=== PATIENT | female | born 1945 | race Caucasian/White ===

== ENCOUNTER 2018-10-15 19:46 | Emergency (ER) | payer MEDICARE, OTHER ==
[2018-10-15 20:20] LABS: MEAN CORPUSCULAR HEMOGLOBIN 28.7 pg (28.0-34.0)
[2018-10-15 20:21] LABS: EOSINOPHILS % 1 % (0-7); MONOCYTES % 3 % (0-11); SEGMENTED NEUTROPHILS % 82 % (39-79)
[2018-10-15 20:23] LABS: eGFR (Non-African) > 60
[2018-10-15] MEDS ORDERED: 0.9 % SODIUM CHLORIDE 1,000 ML IV ONE (20:26)
--- NOTE | 2018-10-15 20:35 | ED Physician Documentation ---
Fall - HISTORIAN Historian: patient - HPI Chief Complaint: Fall Onset: just prior to arrival Where: home Context: tripped r: moderate Associated Symptoms:: no loss of consciousness Location of Pain/Injury: head, neck, upper back Injury to Right Extremity: shoulder Injury to Left Extremity: none Further Comments: yes (73 year old female patient brought in after a fall down 10 steps at home. Patient reports tripping going down the stairs. Denies LOC. Presents with complaint of neck, right shoulder and back pain.) - ROS CONST: no problems NEURO: denies: dizziness, anxiety, depression MS/SKIN/LYMPH: denies: weakness, numbness, neck pain, back pain, ankle swelling, leg swelling, rash, other EYES/ENT: none CVS/RESP: none GI/: denies: problems urinating, nausea, vomiting, other - PAST HX Past History: other (chronic pain left leg; rotator cuff tear right shoulder; HTN, OA, hypothyroidism, ) Allergies/Adverse Reactions: Allergies Allergy/AdvReac Type Severity Reaction Status Date / Time No Known Allergies Allergy Verified 10/15/18 20:53 - SOCIAL HX Smoking History: non-smoker - FAMILY HX Family History: denies: none - REVIEWED ASSESSMENTS Nursing Assessment Reviewed: Yes Vitals Reviewed: Yes Progress - Progress Progress: 2049 CT's completed; c-spine clear, c-collar removed. No complaint of pain with flexion, extension or rotation 2109 Patient now complaining of right shoulder and right ankle pain. Will not move right shoulder. Will obtain xrays. [address], cap refill prompt. Reviewed discharge instructions with patient and family; explained no weight bearing. Patient does not think she can use crutches. She does have a wheelchair and walker at home. ED Results Lab/Radiology - Lab Results Lab Results: Lab Results 10/15/18 10/15/18 19:52 19:52 WBC 23.10 K/ul H K/ul (4.00-12.00) RBC 5.18 M/ul M/ul (3.90-5.20) Hgb 14.9 g/dL g/dL (11.5-16.0) Hct 44.3 % % (34.5-46.5) MCV 85.0 fl fl (80.0-100.0) MCH 28.7 pg pg (28.0-34.0) MCHC 33.6 g/dL g/dL (30.0-36.0) RDW 14.4 % H % (11.3-14.3) Plt Count 181 K/mm3 K/mm3 (130-400) Seg Neutrophils % 82 % H % (39-79) Band Neutrophils % 7 % % (0-12) Lymphocytes % 7 % L % (16-50) Monocytes % 3 % % (0-11) Eosinophils % 1 % % (0-7) Plt Morphology Comment Normal (NORMAL) RBC Morph Comment Normal (NORMAL) Sodium 135 mmol/L L mmol/L (137-145) Potassium 4.6 mmol/L mmol/L (3.5-5.1) Chloride 103 mmol/L mmol/L (98-107) Carbon Dioxide 25 mmol/L mmol/L (22-30) BUN 22 mg/dL H mg/dL (7-17) Creatinine 0.72 mg/dL mg/dL (0.52-1.04) Est GFR ( Amer) > 60 (60 - ) Est GFR (Non-Af Amer) > 60 (60 - ) Glucose 131 mg/dL H mg/dL (74-106) Calcium 8.8 mg/dL mg/dL (8.4-10.2) Total Bilirubin 0.6 mg/dL mg/dL (0.2-1.3) AST 63 U/L H U/L (15-46) ALT 40 U/L H U/L (0-35) Alkaline Phosphatase 68 U/L U/L (38-126) Total Protein 7.2 g/dL g/dL (6.3-8.2) Albumin 4.0 g/dL g/dL (3.5-5.0) - Radiology Radiology Impressions: CT CERVICAL SPINE HISTORY: Fall down stairs, headache and neck pain. TECHNIQUE: Axial, sagittal and coronal scans through the cervical spine were obtained without contrast. FINDINGS: Degenerative disc disease is seen at many levels in the cervical spine, most severe at C6/C7 with disc space narrowing and osteophyte formation. Multilevel facet degenerative changes are seen as well. No fractures are identified. No disk protrusion, spinal stenosis, neural foraminal encroachment or nerve root impingement is identified. Soft tissue structures in the neck included on the study are within normal limits. IMPRESSION: Multilevel degenerative disc and facet disease, but no evidence of fracture or other acute abnormality. Electronically signed on October 15, 2018 8:43:00 PM CDT by: Nino Sosa CT BRAIN HISTORY: Fall down stairs, headache and neck pain. TECHNIQUE: Scans through the brain were obtained without contrast. FINDINGS: Bone window settings demonstrates no calvarial abnormality. Prominent scalp hematoma over the posterior right parietal bone is seen. The paranasal sinuses and mastoid air cells included on the study are unremarkable. Cerebral atrophy is present but there is no evidence of intra-or extra axial mass lesion, midline shift, subdural hematoma, hemorrhage, or focal CVA identified. Lateral ventricles and basilar cisterns are within normal limits. IMPRESSION: Right posterior parietal scalp hematoma. Mild atrophy. Unremarkable unenhanced head CT otherwise. Electronically signed on October 15, 2018 8:39:08 PM CDT by: Nino Sosa ANKLE RIGHT HISTORY: Fall, Right ankle anteromedial pain. FINDINGS: AP, lateral and oblique views of the right ankle demonstrates medial malleolar fracture with 45 rotation of the avulsed fragment. Soft tissue swelling of this region is seen. Avulsion fracture from the anterior superior talus is present as well. Prominent calcaneal spurs at the plantar fascia and Achilles tendon are seen and degenerative changes at the midfoot are present. Fibula is intact. IMPRESSION: Medial malleolar fracture with rotation of the fragment with avulsed fracture from the anterosuperior talus. Electronically signed on October 15, 2018 9:45:52 PM CDT by: Nino Sosa SHOULDER RIGHT HISTORY: Fall, Right shoulder pain. FINDINGS: AP, oblique and scapular Y views of the right shoulder demonstrates superior migration the humeral head to abut the undersurface of the acromion consistent with chronic rotator cuff tear. Degenerative changes at the AC joint are seen. No fractures or other acute abnormality are identified. IMPRESSION: Chronic rotator cuff tear. Degenerative changes of the AC joint. Electronically signed on October 15, 2018 9:48:40 PM CDT by: Nino Sosa - Orders Orders: ED Orders Category Date Time Status Continuous EKG monitoring Q30M Care 10/15/18 19:52 Active Continuous Pulse Oximetry Q30M Care 10/15/18 19:[address] IV Lock 1T Care 10/15/18 19:[address] BRAIN W/O CONTRAST Stat Exams 10/15/[address] C-SPINE W/O CONTRAST Stat Exams 10/15/18 Taken CBC/PLATELET/DIFF Stat Lab 10/15/18 19:52 Completed CMP Stat Lab 10/15/18 19:52 Completed UA W/MICRO IF INDICATED Stat Lab 10/15/18 19:52 Ordered 0.9 % Sodium Chloride [Normal Saline] 1,000 ml Med 10/15/18 20:26 Discontinued IV NOW Fall Physical Exam - Physical Exam General Appearance: c-collar in ED Head: trauma (hematoma right occiptal area; abrasion to left occipital area) Neck: trachea midline, decreased ROM, pain with neck movement Eye: KENZIE, EOMI, lids & conjunct. nml Resp/CVS: chest non-tender, no ecchymosis, breath sounds nml, no resp. distress, heart sounds nml Abdomen: soft, no organomegaly, normal bowel sounds, no abdominal bruit, no distension Neuro: oriented x3, CN's nml as tested, sensation nml, motor nml, mood/affect nml, infirmary attendant nml, reflexes nml, infirmary attendant symmetrical Skin: color nml, no rash, nml palp., dry, other (abrasion right posterior shoulder) Back: normal inspection, no CVA tenderness Extremities: atraumatic, pelvis stable, hips non-tender, no pedal edema, nml ROM, nml color/temp - [place] Coma Score Eyes Open: Spontaneous Speech: Oriented Motor: Obeys Commands Discharge Clincal Impression: Fall Qualifiers: Encounter type: initial encounter Qualified Code(s): W19.XXXA - Unspecified fall, initial encounter Fracture of medial malleolus, right, closed Qualifiers: Encounter type: initial encounter Fracture alignment: displaced Qualified Code(s): S82.51XA - Displaced fracture of medial malleolus of right tibia, initial encounter for closed fracture Sprain of right shoulder Qualifiers: Encounter type: initial encounter Shoulder sprain type: rotator cuff capsule Qualified Code(s): S43.421A - Sprain of right rotator cuff capsule, initial encounter Referrals: Telma Priest FNP [Primary Care Provider] - 2 Days Additional Instructions: Call the Orthopedic doctor of your choice in the morning for an appointment. See attached. Sling to right shoulder - as needed for discomfort. Use your crutches at all times. No weight bearing. Rest Ice - at least 5 times a day; 30 minutes Elevation - above the level of the heart Call orthopedics for a follow up appointment in the next 2-3 days. Take your disc and report to the appointment. Do not get your OCL splint wet. Place extremity in a trash bag to shower. Return to the ER right away if: You cannot wiggle the toes The toes are pale or blue The splint is loose, damaged, gets wet or smells bad Condition: Stable Decision to Admit: NO Decision Time: 22:27
--- NOTE | 2018-10-15 20:45 | Diagnostic Imaging Report ---
TIFFANY COSBY (PILE DRIVING SETTER) - ER [facility] [address] [facility] [address] [place], [place]. [address] Report Submission Date: October 15, 2018 8:39:08 PM CDT Patient Study Name: SABINE DONOHUE Date: October 15, 2018 7:59:49 PM CDT Modality Type: CT\SR Gender: F Description: CT BRAIN W/O CONTRAST : 43 Institution: [facility] Physician: TIFFANY COSBY (PILE DRIVING SETTER) - ER CT BRAIN HISTORY: Fall down stairs, headache and neck pain. TECHNIQUE: Scans through the brain were obtained without contrast. FINDINGS: Bone window settings demonstrates no calvarial abnormality. Prominent scalp hematoma over the posterior right parietal bone is seen. The paranasal sinuses and mastoid air cells included on the study are unremarkable. Cerebral atrophy is present but there is no evidence of intra-or extra axial mass lesion, midline shift, subdural hematoma, hemorrhage, or focal CVA identified. Lateral ventricles and basilar cisterns are within normal limits. IMPRESSION: Right posterior parietal scalp hematoma. Mild atrophy. Unremarkable unenhanced head CT otherwise. Electronically signed on October 15, 2018 8:39:08 PM CDT by: Nino MARIANO
--- NOTE | 2018-10-15 20:46 | Diagnostic Imaging Report ---
TIFFANY COSBY (PICK UP OPERATOR) - ER [facility] [address] [facility] [address] [place], [place]. [address] Report Submission Date: October 15, 2018 8:43:00 PM CDT Patient Study Name: SABINE DONOHUE Date: October 15, 2018 8:02:02 PM CDT Modality Type: CT\SR Gender: F Description: CT C-SPINE W/O CONTRAS : 43 Institution: [facility] Physician: TIFFANY COSBY) - ER CT CERVICAL SPINE HISTORY: Fall down stairs, headache and neck pain. TECHNIQUE: Axial, sagittal and coronal scans through the cervical spine were obtained without contrast. FINDINGS: Degenerative disc disease is seen at many levels in the cervical spine, most severe at C6/C7 with disc space narrowing and osteophyte formation. Multilevel facet degenerative changes are seen as well. No fractures are identified. No disk protrusion, spinal stenosis, neural foraminal encroachment or nerve root impingement is identified. Soft tissue structures in the neck included on the study are within normal limits. IMPRESSION: Multilevel degenerative disc and facet disease, but no evidence of fracture or other acute abnormality. Electronically signed on October 15, 2018 8:43:00 PM CDT by: Nino MARIANO
[2018-10-15] MEDS ORDERED: KETOROLAC TROMETHAMINE 30 MG/1ML VIAL IVP ONE (21:09)
--- NOTE | 2018-10-15 21:54 | Diagnostic Imaging Report ---
TIFFANY COSBY (IDENTITY ACCESS MANAGEMENT ARCHITECT) - ER [facility] [address] [address] Report Submission Date: October 15, 2018 9:48:40 PM CDT Patient Study Name: SABINE DONOHUE Date: October 15, 2018 9:11:18 PM CDT Modality Type: DX Gender: F Description: SHOULDER 2 VIEWS OR MORE : 43 Institution: [facility] Physician: TIFFANY COSBY (GISELA) - ER SHOULDER RIGHT HISTORY: Fall, Right shoulder pain. FINDINGS: AP, oblique and scapular Y views of the right shoulder demonstrates superior migration the humeral head to abut the undersurface of the acromion consistent with chronic rotator cuff tear. Degenerative changes at the AC joint are seen. No fractures or other acute abnormality are identified. IMPRESSION: Chronic rotator cuff tear. Degenerative changes of the AC joint. Electronically signed on October 15, 2018 9:48:40 PM CDT by: Nino MARIANO
--- NOTE | 2018-10-15 21:54 | Diagnostic Imaging Report ---
TIFFANY COSBY (PRESCHOOL DIRECTOR) - ER [facility] [address] [facility] [address] Report Submission Date: October 15, 2018 9:45:52 PM CDT Patient Study Name: SABINE DONOHUE Date: October 15, 2018 9:11:18 PM CDT Modality Type: DX Gender: F Description: ANKLE 3 VIEWS OR MORE : 43 Institution: [facility] Physician: TIFFANY COSBY (GISELA) - ER ANKLE RIGHT HISTORY: Fall, Right ankle anteromedial pain. FINDINGS: AP, lateral and oblique views of the right ankle demonstrates medial malleolar fracture with 45 rotation of the avulsed fragment. Soft tissue swelling of this region is seen. Avulsion fracture from the anterior superior talus is present as well. Prominent calcaneal spurs at the plantar fascia and Achilles tendon are seen and degenerative changes at the midfoot are present. Fibula is intact. IMPRESSION: Medial malleolar fracture with rotation of the fragment with avulsed fracture from the anterosuperior talus. Electronically signed on October 15, 2018 9:45:52 PM CDT by: Nino MARIANO
[2018-10-15] MEDS ORDERED: HYDROcodone /APAP 5/325 1 EACH TABLET PO ONE (22:39)
[2018-10-15 23:17] VITALS: BP 172/66
== END 2018-10-15 23:15 ==
LOC: ED 19:46
DX: S82.51XA Displaced fracture of medial malleolus of right tibia, initial encounter for closed fracture (principal); S43.421A Sprain of right rotator cuff capsule, initial encounter; S00.01XA Abrasion of scalp, initial encounter; S40.211A Abrasion of right shoulder, initial encounter; W10.9XXA Fall (on) (from) unspecified stairs and steps, initial encounter; Y93.01 Activity, walking, marching and hiking; Y92.008 Other place in unspecified non-institutional (private) residence as the place of occurrence of the external cause
CPT/HCPCS: 36415; 70450; 72125; 73030; 73610; 80053; 85025; 96374; 99284; 99285; J1885; A9270-GY; J7030; S1016